=== PATIENT | male | born 2000 ===

== ENCOUNTER 2021-06-16 20:56 | Emergency (ER) | payer OTHER ==
[~2021-06-16] VITALS: Ht 182.9 cm; Wt 77.3 kg
[2021-06-16 21:06] VITALS: BP 138/87
[2021-06-16] MEDS ORDERED: HYDROcodone/acetaminophen 10/325mg tab PO ONE (22:55)
[2021-06-16] MEDS ORDERED: HYDR-3972 PO (23:08)
== END 2021-06-16 23:13 | disposition home or self-care (01) ==
LOC: ER 20:57
DX: S83.91XA Sprain of unspecified site of right knee, initial encounter (principal); X50.9XXA Other and unspecified overexertion or strenuous movements or postures, initial encounter; Y93.89 Activity, other specified; Y92.89 Other specified places as the place of occurrence of the external cause; Y99.8 Other external cause status
CPT/HCPCS: 29505; 73564; 99283; 99284